=== PATIENT | female | born 1995 | race Caucasian/White ===

== ENCOUNTER 2019-07-03 15:02 | Observation (INO) | payer MEDICAID ==
[~2019-07-03] VITALS: Ht 160 cm; Wt 88.5 kg
[2019-07-03] MEDS ORDERED: PNV1TABL76 PO (17:57)
== END 2019-07-03 18:00 | disposition home or self-care (01) ==
LOC: 8 EST LDRP 15:02
PROVIDERS: ADMIT Obstetrics & Gynecology; ATTEND Obstetrics & Gynecology
DX: O42.92 Full-term premature rupture of membranes, unspecified as to length of time between rupture and onset of labor (principal); Z3A.39 39 weeks gestation of pregnancy
CPT/HCPCS: 76805; 76818; 99281; G0378